=== PATIENT | female | born 1950 | race Caucasian/White ===

== ENCOUNTER 2025-06-30 08:00 | Outpatient (RCR) | payer MEDICARE, BC, SELFPAY | END 2025-06-30 23:59 | disposition home or self-care (01) | LOC: PT 08:00 | PROVIDERS: Visit Provider Psychiatry & Neurology Neurology | DX: M79.671 Pain in right foot (principal) | CPT/HCPCS: 97110; 97162; 97535 ==

== ENCOUNTER 2025-07-28 08:00 | Outpatient (RCR) | payer MEDICARE, BC, SELFPAY | END 2025-07-28 23:59 | disposition home or self-care (01) | LOC: PT 08:00 | PROVIDERS: Visit Provider Psychiatry & Neurology Neurology | DX: M79.671 Pain in right foot (principal) | CPT/HCPCS: 97110; 97530 ==

== ENCOUNTER 2025-08-11 08:00 | Outpatient (RCR) | payer MEDICARE, BC, SELFPAY | END 2025-08-11 23:59 | disposition home or self-care (01) | LOC: PT 08:00 | PROVIDERS: Visit Provider Psychiatry & Neurology Neurology | DX: M79.671 Pain in right foot (principal) | CPT/HCPCS: 97110; 97530 ==